=== PATIENT | female | born 1985 | race American Indian/Alaskan Native ===

== ENCOUNTER 2017-02-21 14:24 | Outpatient (CLI) | payer OTHER ==
--- NOTE | 2017-02-21 15:40 | XRay Report ---
RIGHT ELBOW: Elbow pain. The bony architecture is intact without evidence of fracture or dislocation. No significant soft tissue abnormality is seen. IMPRESSION: Normal right elbow.
== END 2017-02-21 14:25 | disposition home or self-care (01) ==
LOC: XRAY 14:24
PROVIDERS: ATTEND Family Medicine
DX: M25.521 Pain in right elbow (principal); M79.601 Pain in right arm

== ENCOUNTER 2018-08-04 08:50 | Emergency (ER) | payer MEDICAID, OTHER ==
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
[2018-08-04 11:48] LABS: HCG Qualitative,Urine Negative (Negative)
[2018-08-04] MEDS ORDERED: ULTRAM PO ONE (11:59)
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
--- NOTE | 2018-08-04 12:33 | Cat Scan Report ---
CT SCAN OF THE CERVICAL SPINE: HISTORY: Midline C-spine tenderness to palpation. TECHNIQUE: Contiguous 1.25 mm axial images of the cervical spine were obtained. Sagittal and coronal reformatted images. FINDINGS: There is mild reversal of the normal cervical lordosis which is probably secondary to positioning. There is normal alignment of the cervical spine. The body, pedicles and posterior ligaments appear normal. No evidence of fracture or subluxation is seen. The spinal canal appears normal. The prevertebral soft tissues appear normal. IMPRESSION: Unremarkable CT of the cervical spine. No acute process is noted.
--- NOTE | 2018-08-04 12:38 | XRay Report ---
AP AND LATERAL LUMBOSACRAL SPINE: History: Back pain The vertebral bodies are well mineralized and normal in alignment and vertebral height with well preserved interspace distances. The visualized portions of the posterior elements are normal. IMPRESSION: Normal study.
== END 2018-08-04 13:09 | disposition home or self-care (01) ==
LOC: ED 08:50
DX: S16.1XXA Strain of muscle, fascia and tendon at neck level, initial encounter (principal); S39.012A Strain of muscle, fascia and tendon of lower back, initial encounter; S09.90XA Unspecified injury of head, initial encounter; Z91.010 Allergy to peanuts; Z88.0 Allergy status to penicillin; Z88.5 Allergy status to narcotic agent; V89.2XXA Person injured in unspecified motor-vehicle accident, traffic, initial encounter; Y93.89 Activity, other specified; Y92.488 Other paved roadways as the place of occurrence of the external cause; Y99.8 Other external cause status
CPT/HCPCS: 70450; 72100; 72125; 81025; 99284

== ENCOUNTER 2018-08-06 07:36 | Emergency (ER) | payer MEDICAID, OTHER ==
[2018-08-06 07:45] VITALS: BP 111/77
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
== END 2018-08-06 08:06 | disposition left against medical advice (07) ==
LOC: ED 07:36
DX: R46.89 Other symptoms and signs involving appearance and behavior (principal)
CPT/HCPCS: 99281

== ENCOUNTER 2020-01-28 18:44 | Emergency (ER) | payer MEDICAID ==
[2020-01-28 21:26] LABS: HCG Qualitative,Urine Negative (Negative)
[2020-01-28 21:30] LABS: Bilirubin,Urine NEG (Negative); Blood,Urine NEG (Negative); Color,Urine Straw (Yellow); Protein,Urine <15 mg/dL mg/dL (Negative); Urobilinogen,Urine < 2.0 mg/dL (<2.0)
[2020-01-29] MEDS ORDERED: LIDOCAINE-MPF (1%) 10 MG/1 ML VIAL 5 ML INFILTRATI ONE (02:03)
[2020-01-29] MEDS ORDERED: AZITHROMYCIN 250 MG TAB PO ONE (02:03)
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
[2020-01-29 03:12] VITALS: BP 114/74
== END 2020-01-29 03:05 | disposition home or self-care (01) ==
LOC: ED 18:44
DX: A64 Unspecified sexually transmitted disease (principal); Z79.1 Long term (current) use of non-steroidal anti-inflammatories (NSAID); Z79.899 Other long term (current) drug therapy; Z88.0 Allergy status to penicillin; Z91.010 Allergy to peanuts; Z88.8 Allergy status to other drugs, medicaments and biological substances
CPT/HCPCS: 81001; 81025; 96372; 99283; J0696

== ENCOUNTER 2020-12-05 10:17 | Emergency (ER) | payer MEDICAID | END 2020-12-05 12:35 | LOC: ED 10:17 | DX: N39.0 Urinary tract infection, site not specified (principal); Z53.21 Procedure and treatment not carried out due to patient leaving prior to being seen by health care provider ==